=== PATIENT | male | born 1980 | race Two or more races ===

== ENCOUNTER 2017-01-30 12:52 | Inpatient (IN) | payer OTHER ==
[2017-01-30 14:16] VITALS: BMI 25.0
--- NOTE | 2017-01-30 15:07 | HP ---
CIWA Score - CIWA Score Nausea/Vomitin-No Nausea/No Vomiting Muscle Tremors: 4-Moderate,w/Arms Extend Anxiety: 3 Agitation: 4-Moderately Restless Paroxysmal Sweats: 3 Orientation: 0-Oriented Tacttile Disturbances: 0-None Auditory Disturbances: 0-None Visual Disturbances: 0-None Headache: 0-None Present CIWA-Ar Total Score: 14 Admission ROS BHS - HPI Chief Complaint: I need to cut down and stop using. Allergies/Adverse Reactions: Allergies Allergy/AdvReac Type Severity Reaction Status Date / Time penicillin G Allergy Severe Hives Verified 01/30/17 14:47 History of Present Illness: pt is a 36yr old male with a history of alcohol dependence seeking detox for treatment. This is his first time in our detox. Last detox at [facility] for detox a year ago. Exam Limitations: No Limitations - Ebola screening Have you traveled outside of the country in the last 21 days: No Have you had contact with anyone from an Ebola affected area: No Have you been sick,other than usual withdrawal symptoms: No Do you have a fever: No - Review of Systems Constitutional: Chills, Loss of Appetite, Night Sweats EENT: reports: No Symptoms Reported, Tearing Respiratory: reports: No Symptoms reported Cardiac: reports: No Symptoms Reported GI: reports: Diarrhea, Nausea, Poor Fluid Intake, Vomiting : reports: No Symptoms Reported Musculoskeletal: reports: No Symptoms Reported Integumentary: reports: Flushing, Sweating Neuro: reports: Seizure (alcohol related seizure 09/2016.), Tingling, Tremors Endocrine: reports: Excessive Sweating, Flushing, Intolerance to Cold, Intolerance to Heat Hematology: reports: No Symptoms Reported Psychiatric: reports: No Sypmtoms Reported, Judgement Intact, Mood/Affect Appropiate, Orientated x3, Agitated, Anxious Other Systems: Reviewed and Negative Patient History - Patient Medical History Hx Anemia: No Hx Asthma: No Hx Chronic Obstructive Pulmonary Disease (COPD): No Hx Cancer: No Hx Cardiac Disorders: No Hx Congestive Heart Failure: No Hx Hypertension: Yes (non compliant) Hx Hypercholesterolemia: No Hx Pacemaker: No HX Cerebrovascular Accident: No Hx Seizures: No Hx Dementia: No Hx Diabetes: No Hx Gastrointestinal Disorders: No Hx Liver Disease: No Hx Genitourinary Disorders: No Hx Sexually Transmitted Disorders: No Hx Renal Disease (ESRD): No Hx Thyroid Disease: No Hx Human Immunodeficiency Virus (HIV): No (negative) Hx Hepatitis C: No (negative) Hx Depression: No Hx Suicide Attempt: No (dennies) Hx Bipolar Disorder: No Hx Schizophrenia: No - Patient Surgical History Past Surgical History: No Hx Neurologic Surgery: No Hx Cataract Extraction: No Hx Cardiac Surgery: No Hx Lung Surgery: No Hx Breast Surgery: No Hx Breast Biopsy: No Hx Abdominal Surgery: No Hx Appendectomy: No Hx Cholecystectomy: No Hx Genitourinary Surgery: No Hx Section: No Hx Orthopedic Surgery: No Anesthesia Reaction: No - PPD History Previous Implant?: Yes Documented Results: Negative w/o proof Implanted On Prior R Admission?: No PPD to be Administered?: Yes - Reproductive History Patient is a Female of Child Bearing Age (11 -55 yrs old): No - Smoking Cessation Smoking history: Current every day smoker Have you smoked in the past 12 months: Yes Aproximately how many cigarettes per day: 10 Hx Chewing Tobacco Use: No Initiated information on smoking cessation: Yes 'Breaking Loose' booklet given: 01/30/17 - Substance & Tx. History Hx Alcohol Use: Yes Hx Substance Use: No Substance Use Type: Alcohol Hx Substance Use Treatment: Yes ([facility] 09/2015) - Substances Abused Alcohol-vodka Route: Oral Frequency: Daily Amount used: 3 pts. Age of first use: 15 Date of Last Use: 01/29/17 Family Disease History - Family Disease History Family Disease History: Other: Father (etoh), Mother (etoh) Admission Physical Exam BHS - Vital Signs Vital Signs: Vital Signs - 24 hr 01/30/17 14:11 Temperature 97.4 F L Pulse Rate 102 H Respiratory 20 Rate Blood Pressure 161/121 - Physical General Appearance: Yes: Appropriately Dressed, Moderate Distress, Tremorous, Irritable, Sweating, Anxious HEENTM: Yes: Normal Voice, Nasal Congestion, Rhinorrhea Respiratory: Yes: Lungs Clear, Normal Breath Sounds, No Respiratory Distress Neck: Yes: No masses,lesions,Nodules Breast: Yes: Within Normal Limits Cardiology: Yes: Regular Rhythm, Regular Rate, S1, S2 Abdominal: Yes: Normal Bowel Sounds, Non Tender, Soft Genitourinary: Yes: Within Normal Limits Back: Yes: Normal Inspection Musculoskeletal: Yes: full range of Motion Extremities: Yes: Normal Capillary Refill, Tremors Neurological: Yes: Fully Oriented, Alert, Normal Response Integumentary: Yes: Normal Color, Diaphoresis Lymphatic: Yes: Within Normal Limits - Diagnostic (1) Alcohol dependence with uncomplicated withdrawal Current Visit: Yes Status: Chronic (2) Nicotine dependence Current Visit: Yes Status: Chronic Qualifiers: Nicotine product type: cigarettes Substance use status: uncomplicated Qualified Code(s): F17.210 - Nicotine dependence, cigarettes, uncomplicated (3) Hypertension Current Visit: Yes Status: Chronic Qualifiers: Hypertension type: essential hypertension Qualified Code(s): I10 - Essential (primary) hypertension Cleared for Admission S - Detox or Rehab [facility] Level of Care: Medically Managed Detox Regimen/Protocol: Librium [facility] Breath Alcohol Content Breath Alcohol Content: 0 Urine Drug Screen - Results Drug Screen Negative: Yes
[2017-01-30] MEDS ORDERED: MAGNESIUM HYDROX 2400MG/30ML ORAL SUSPENSION 30 ML CUP PO PRN (15:10)
[2017-01-30] MEDS ORDERED: NICOTINE POLACRILEX 4 MG GUM BUC PRN (15:10)
[2017-01-30] MEDS ORDERED: guaiFENesin/D-METHORPHAN HB 10 ML UNIT-DOSE CUPS PO PRN (15:10)
[2017-01-30] MEDS ORDERED: MAGNESIUM CITRATE 300 ML BOTTLE PO PRN (15:10)
[2017-01-30] MEDS ORDERED: IBUPROFEN 400 MG TABLET (FP) PO PRN (15:10)
[2017-01-30] MEDS ORDERED: LOPERAMIDE HCL 2 MG CAPSULE PO PRN (15:10)
[2017-01-30] MEDS ORDERED: P-EPHED 60MG/TRIPROLIDI 2.5MG TABLET PO PRN (15:10)
[2017-01-30] MEDS ORDERED: MENTHOL/PHENOL 1 EACH UD MM PRN (15:10)
[2017-01-30] MEDS ORDERED: chlordiazePOXIDE HCL 25 MG CAPSULE PO PRN (15:10)
[2017-01-30] MEDS ORDERED: MAG HYDROX/AL HYDROX/SIMETH 30 ML UNIT-DOSE CUP PO PRN (15:10)
[2017-01-30] MEDS ORDERED: hydrOXYzine PAMOATE 50 MG CAPSULE (FP) PO PRN (15:10)
[2017-01-30] MEDS ORDERED: ACETAMINOPHEN 325 MG TABLET (FP) PO PRN (15:10)
[2017-01-30] MEDS ORDERED: chlordiazePOXIDE HCL 25 MG CAPSULE PO ONE (15:28)
[2017-01-30] MEDS ORDERED: LISINOPRIL 10 MG TABLET (FP) PO SCH (15:30)
[2017-01-30] MEDS: chlordiazePOXIDE HCL 25 MG CAPSULE PO SCH ×2 (17:05→22:12)
[2017-01-30 18:19] LABS: URINE APPEARANCE CLEAR; URINE BILIRUBIN NEGATIVE (NEGATIVE); URINE BLOOD NEGATIVE (NEGATIVE); URINE COLOR YELLOW; URINE GLUCOSE (UA) NEGATIVE (NEGATIVE); URINE KETONE 1+ (NEGATIVE); URINE LEUK ESTERASE NEGATIVE (NEGATIVE); URINE NITRITE NEGATIVE (NEGATIVE); URINE UROBILINOGEN NEGATIVE mg/dL (0.2-1.0)
[2017-01-30 18:27] LABS: URINE PROTEIN 3+ (NEGATIVE)
[2017-01-30 19:34] LABS: URINE MUCUS FEW; URINE RBC 4 /hpf (0-3); URINE WBC 1 /hpf (3-5)
[2017-01-30 19:38] LABS: URINE HYALINE CAST 3 /lpf
[2017-01-30] MEDS: THIAMINE HCL 100 MG TABLET (FP) PO SCH (22:12)
[2017-01-30] MEDS: diphenhydrAMINE HCL 50 MG CAPSULE PO PRN (22:13)
[2017-01-31] MEDS: chlordiazePOXIDE HCL 25 MG CAPSULE PO SCH ×4 (05:40→22:29)
[2017-01-31 09:54] LABS: MCH 30.9 pg (25.7-33.7); MCHC 33.8 g/dl (32.0-35.9); MEAN CELL VOLUME 91.6 fl (80-96); MEAN PLT VOLUME 9.3 fl (7.5-11.1); PLATELET COUNT 287 K/MM3 (134-434); RDW 13.9 % (11.9-15.9)
[2017-01-31] MEDS: PRENATAL VITAMINS W/ FOLIC ACID TABLET (FP) PO SCH (10:10)
[2017-01-31] MEDS: LISINOPRIL 10 MG TABLET (FP) PO SCH ×2 (10:11→22:29)
[2017-01-31] MEDS: NICOTINE 21 MG/24 HOURS TOPICAL PATCH TD SCH (10:11)
[2017-01-31 10:29] LABS: ALBUMIN 3.6 g/dl (3.4-5.0); ALK PHOS 87 U/L (45-117); ANION GAP 10 (8-16); BILIRUBIN,TOTAL 0.5 mg/dL (0.2-1.0); CALCIUM 9.5 mg/dL (8.5-10.1); CO2 27 mmol/L (21-32); CREATININE 0.9 mg/dL (0.7-1.3); GLUCOSE,RANDOM 127 mg/dL (74-106); SGOT/AST 42 U/L (15-37); SGPT/ALT 56 U/L (12-78); TOT PROT 8.3 g/dl (6.4-8.2)
[2017-01-31 10:50] LABS: HIV 1 & 2 AB NEGATIVE; HIV 1 AGp24 NEGATIVE
--- NOTE | 2017-01-31 10:52 | PN ---
[facility] CIWA - CIWA Score Nausea/Vomitin-No Nausea/No Vomiting Muscle Tremors: 4-Moderate,w/Arms Extend Anxiety: 4-Mod. Anxious/Guarded Agitation: 4-Moderately Restless Paroxysmal Sweats: 1-Minimal Palms Moist Orientation: 0-Oriented Tacttile Disturbances: 3-Moderate Itch/Numb/Burn Auditory Disturbances: 0-None Visual Disturbances: 0-None Headache: 0-None Present CIWA-Ar Total Score: 16 S Progress Note (SOAP) Subjective: ANXIETY,TREMORS,SWEATS, INTERMITTENT SLEEP. Objective: 01/31/17 10:52 Vital Signs Temperature 98.0 F 01/31/17 09:25 Pulse Rate 87 01/31/17 09:25 Respiratory Rate 18 01/31/17 09:25 Blood Pressure 144/104 01/31/17 09:25 O2 Sat by Pulse Oximetry (%) Laboratory Last Values WBC 8.0 K/mm3 (4.0-10.0) 01/31/17 06:30 RBC 4.98 M/mm3 (4.00-5.60) 01/31/17 06:30 Hgb 15.4 GM/dL (11.7-16.9) 01/31/17 06:30 Hct 45.6 % (35.4-49) 01/31/17 06:30 MCV 91.6 fl (80-96) 01/31/17 06:30 MCH 30.9 pg (25.7-33.7) 01/31/17 06:30 MCHC 33.8 g/dl (32.0-35.9) 01/31/17 06:30 RDW 13.9 % (11.9-15.9) 01/31/17 06:30 Plt Count 287 K/MM3 (134-434) 01/31/17 06:30 MPV 9.3 fl (7.5-11.1) 01/31/17 06:30 Sodium 135 mmol/L (136-145) L 01/31/17 06:30 Potassium 3.7 mmol/L (3.5-5.1) 01/31/17 06:30 Chloride 98 mmol/L (98-107) 01/31/17 06:30 Carbon Dioxide 27 mmol/L (21-32) 01/31/17 06:30 Anion Gap 10 (8-16) 01/31/17 06:30 BUN 8 mg/dL (7-18) 01/31/17 06:30 Creatinine 0.9 mg/dL (0.7-1.3) 01/31/17 06:30 Creat Clearance w eGFR > 60 (>60) 01/31/17 06:30 Random Glucose 127 mg/dL (74-106) H 01/31/17 06:30 Calcium 9.5 mg/dL (8.5-10.1) 01/31/17 06:30 Total Bilirubin 0.5 mg/dL (0.2-1.0) 01/31/17 06:30 AST 42 U/L (15-37) H 01/31/17 06:30 ALT 56 U/L (12-78) 01/31/17 06:30 Alkaline Phosphatase 87 U/L (45-117) 01/31/17 06:30 Total Protein 8.3 g/dl (6.4-8.2) H 01/31/17 06:30 Albumin 3.6 g/dl (3.4-5.0) 01/31/17 06:30 Urine Color Yellow 01/30/17 17:06 Urine Appearance Clear 01/30/17 17:06 Urine pH 8.0 (5.0-8.0) 01/30/17 17:06 Ur Specific [place] 1.025 (1.005-1.025) 01/30/17 17:06 Urine Protein 3+ (NEGATIVE) H 01/30/17 17:06 Urine Glucose (UA) Negative (NEGATIVE) 01/30/17 17:06 Urine Ketones 1+ (NEGATIVE) H 01/30/17 17:06 Urine Blood Negative (NEGATIVE) 01/30/17 17:06 Urine Nitrite Negative (NEGATIVE) 01/30/17 17:06 Urine Bilirubin Negative (NEGATIVE) 01/30/17 17:06 Urine Urobilinogen Negative mg/dL (0.2-1.0) 01/30/17 17:06 Ur Leukocyte Esterase Negative (NEGATIVE) 01/30/17 17:06 Urine RBC 4 /hpf (0-3) 01/30/17 17:06 Urine WBC 1 /hpf (3-5) 01/30/17 17:06 Ur Epithelial Cells Rare /hpf (FEW) 01/30/17 17:06 Hyaline Casts 3 /lpf 01/30/17 17:06 Urine Mucus Few 01/30/17 17:06 HIV 1&2 Antibody Screen Negative 01/31/17 09:00 HIV P24 Antigen Negative 01/31/17 09:00 Assessment: 01/31/17 10:54 WITHDRAWAL SX Plan: CONTINUE DETOX
[2017-01-31] MEDS ORDERED: chlordiazePOXIDE HCL 25 MG CAPSULE PO ONE (14:30)
--- NOTE | 2017-01-31 14:50 | EKG ---
Test Reason : Blood Pressure : / mmHG Vent. Rate : 084 BPM Atrial Rate : 084 BPM P-R Int : 156 ms QRS Dur : 078 ms QT Int : 400 ms P-R-T Axes : 047 032 044 degrees QTc Int : 472 ms SINUS RHYTHM WITH MARKED SINUS ARRHYTHMIA OTHERWISE NORMAL ECG NO PREVIOUS ECGS AVAILABLE Confirmed by CHASTITY GOODRICH MD ([id number]) on 01/31/2017 2:50:43 PM Referred By: Confirmed By:CHASTITY GOODRICH MD
[2017-01-31] MEDS: THIAMINE HCL 100 MG TABLET (FP) PO SCH (22:28)
[2017-01-31] MEDS: diphenhydrAMINE HCL 50 MG CAPSULE PO PRN (22:29)
[2017-02-01] MEDS: chlordiazePOXIDE HCL 25 MG CAPSULE PO SCH ×2 (05:45→10:16)
[2017-02-01] MEDS: LISINOPRIL 10 MG TABLET (FP) PO SCH ×2 (10:16→21:18)
[2017-02-01] MEDS: NICOTINE 21 MG/24 HOURS TOPICAL PATCH TD SCH (10:16)
[2017-02-01] MEDS: PRENATAL VITAMINS W/ FOLIC ACID TABLET (FP) PO SCH (10:16)
--- NOTE | 2017-02-01 10:23 | PN ---
[facility] CIWA - CIWA Score Nausea/Vomitin-No Nausea/No Vomiting Muscle Tremors: 4-Moderate,w/Arms Extend Anxiety: 4-Mod. Anxious/Guarded Agitation: 4-Moderately Restless Paroxysmal Sweats: 1-Minimal Palms Moist Orientation: 0-Oriented Tacttile Disturbances: 3-Moderate Itch/Numb/Burn Auditory Disturbances: 0-None Visual Disturbances: 0-None Headache: 0-None Present CIWA-Ar Total Score: 16 BHS Progress Note (SOAP) Subjective: ANXIETY,SWEATS,SLIGHT TREMORS. Objective: 02/01/17 10:22 Vital Signs Temperature 97.7 F 02/01/17 09:22 Pulse Rate 88 02/01/17 09:22 Respiratory Rate 18 02/01/17 09:22 Blood Pressure 131/86 02/01/17 09:22 O2 Sat by Pulse Oximetry (%) Laboratory Last Values WBC 8.0 K/mm3 (4.0-10.0) 01/31/17 06:30 RBC 4.98 M/mm3 (4.00-5.60) 01/31/17 06:30 Hgb 15.4 GM/dL (11.7-16.9) 01/31/17 06:30 Hct 45.6 % (35.4-49) 01/31/17 06:30 MCV 91.6 fl (80-96) 01/31/17 06:30 MCH 30.9 pg (25.7-33.7) 01/31/17 06:30 MCHC 33.8 g/dl (32.0-35.9) 01/31/17 06:30 RDW 13.9 % (11.9-15.9) 01/31/17 06:30 Plt Count 287 K/MM3 (134-434) 01/31/17 06:30 MPV 9.3 fl (7.5-11.1) 01/31/17 06:30 Sodium 135 mmol/L (136-145) L 01/31/17 06:30 Potassium 3.7 mmol/L (3.5-5.1) 01/31/17 06:30 Chloride 98 mmol/L (98-107) 01/31/17 06:30 Carbon Dioxide 27 mmol/L (21-32) 01/31/17 06:30 Anion Gap 10 (8-16) 01/31/17 06:30 BUN 8 mg/dL (7-18) 01/31/17 06:30 Creatinine 0.9 mg/dL (0.7-1.3) 01/31/17 06:30 Creat Clearance w eGFR > 60 (>60) 01/31/17 06:30 Random Glucose 127 mg/dL (74-106) H 01/31/17 06:30 Calcium 9.5 mg/dL (8.5-10.1) 01/31/17 06:30 Total Bilirubin 0.5 mg/dL (0.2-1.0) 01/31/17 06:30 AST 42 U/L (15-37) H 01/31/17 06:30 ALT 56 U/L (12-78) 01/31/17 06:30 Alkaline Phosphatase 87 U/L (45-117) 01/31/17 06:30 Total Protein 8.3 g/dl (6.4-8.2) H 01/31/17 06:30 Albumin 3.6 g/dl (3.4-5.0) 01/31/17 06:30 Urine Color Yellow 01/30/17 17:06 Urine Appearance Clear 01/30/17 17:06 Urine pH 8.0 (5.0-8.0) 01/30/17 17:06 Ur Specific [place] 1.025 (1.005-1.025) 01/30/17 17:06 Urine Protein 3+ (NEGATIVE) H 01/30/17 17:06 Urine Glucose (UA) Negative (NEGATIVE) 01/30/17 17:06 Urine Ketones 1+ (NEGATIVE) H 01/30/17 17:06 Urine Blood Negative (NEGATIVE) 01/30/17 17:06 Urine Nitrite Negative (NEGATIVE) 01/30/17 17:06 Urine Bilirubin Negative (NEGATIVE) 01/30/17 17:06 Urine Urobilinogen Negative mg/dL (0.2-1.0) 01/30/17 17:06 Ur Leukocyte Esterase Negative (NEGATIVE) 01/30/17 17:06 Urine RBC 4 /hpf (0-3) 01/30/17 17:06 Urine WBC 1 /hpf (3-5) 01/30/17 17:06 Ur Epithelial Cells Rare /hpf (FEW) 01/30/17 17:06 Hyaline Casts 3 /lpf 01/30/17 17:06 Urine Mucus Few 01/30/17 17:06 RPR Titer Nonreactive (NONREACTIVE) 01/31/17 06:30 HIV 1&2 Antibody Screen Negative 01/31/17 09:00 HIV P24 Antigen Negative 01/31/17 09:00 Assessment: 02/01/17 10:23 WITHDRAWAL SX Plan: CONTINUE DETOX
[2017-02-01] MEDS ORDERED: chlordiazePOXIDE HCL 25 MG CAPSULE PO ONE (14:30)
[2017-02-01] MEDS: chlordiazePOXIDE 5 MG CAPSULE PO SCH ×2 (17:20→22:07)
[2017-02-01] MEDS: THIAMINE HCL 100 MG TABLET (FP) PO SCH (22:07)
[2017-02-01] MEDS: diphenhydrAMINE HCL 50 MG CAPSULE PO PRN (22:07)
[2017-02-02] MEDS: chlordiazePOXIDE 5 MG CAPSULE PO SCH (05:43)
--- NOTE | 2017-02-02 10:09 | DS ---
[facility] Detox Discharge Summary Admission Date: 01/30/17 Discharge Date: 02/02/17 - History Present History: Alcohol Dependence Additional Comments: DETOX COMPLETED. ALERT O X 3. NAD.PT INSTRUCTED TO FOLLOW UP AT [facility]. Pertinent Past History: HTN - Physical Exam Results Vital Signs: Vital Signs Temperature 97.4 F L 02/02/17 06:09 Pulse Rate 93 H 02/02/17 06:09 Respiratory Rate 18 02/02/17 06:09 Blood Pressure 149/104 02/02/17 06:09 O2 Sat by Pulse Oximetry (%) Pertinent Admission Physical Exam Findings: WITHDRAWAL SX Laboratory Last Values WBC 8.0 K/mm3 (4.0-10.0) 01/31/17 06:30 RBC 4.98 M/mm3 (4.00-5.60) 01/31/17 06:30 Hgb 15.4 GM/dL (11.7-16.9) 01/31/17 06:30 Hct 45.6 % (35.4-49) 01/31/17 06:30 MCV 91.6 fl (80-96) 01/31/17 06:30 MCH 30.9 pg (25.7-33.7) 01/31/17 06:30 MCHC 33.8 g/dl (32.0-35.9) 01/31/17 06:30 RDW 13.9 % (11.9-15.9) 01/31/17 06:30 Plt Count 287 K/MM3 (134-434) 01/31/17 06:30 MPV 9.3 fl (7.5-11.1) 01/31/17 06:30 Sodium 135 mmol/L (136-145) L 01/31/17 06:30 Potassium 3.7 mmol/L (3.5-5.1) 01/31/17 06:30 Chloride 98 mmol/L (98-107) 01/31/17 06:30 Carbon Dioxide 27 mmol/L (21-32) 01/31/17 06:30 Anion Gap 10 (8-16) 01/31/17 06:30 BUN 8 mg/dL (7-18) 01/31/17 06:30 Creatinine 0.9 mg/dL (0.7-1.3) 01/31/17 06:30 Creat Clearance w eGFR > 60 (>60) 01/31/17 06:30 Random Glucose 127 mg/dL (74-106) H 01/31/17 06:30 Calcium 9.5 mg/dL (8.5-10.1) 01/31/17 06:30 Total Bilirubin 0.5 mg/dL (0.2-1.0) 01/31/17 06:30 AST 42 U/L (15-37) H 01/31/17 06:30 ALT 56 U/L (12-78) 01/31/17 06:30 Alkaline Phosphatase 87 U/L (45-117) 01/31/17 06:30 Total Protein 8.3 g/dl (6.4-8.2) H 01/31/17 06:30 Albumin 3.6 g/dl (3.4-5.0) 01/31/17 06:30 Urine Color Yellow 01/30/17 17:06 Urine Appearance Clear 01/30/17 17:06 Urine pH 8.0 (5.0-8.0) 01/30/17 17:06 Ur Specific [place] 1.025 (1.005-1.025) 01/30/17 17:06 Urine Protein 3+ (NEGATIVE) H 01/30/17 17:06 Urine Glucose (UA) Negative (NEGATIVE) 01/30/17 17:06 Urine Ketones 1+ (NEGATIVE) H 01/30/17 17:06 Urine Blood Negative (NEGATIVE) 01/30/17 17:06 Urine Nitrite Negative (NEGATIVE) 01/30/17 17:06 Urine Bilirubin Negative (NEGATIVE) 01/30/17 17:06 Urine Urobilinogen Negative mg/dL (0.2-1.0) 01/30/17 17:06 Ur Leukocyte Esterase Negative (NEGATIVE) 01/30/17 17:06 Urine RBC 4 /hpf (0-3) 01/30/17 17:06 Urine WBC 1 /hpf (3-5) 01/30/17 17:06 Ur Epithelial Cells Rare /hpf (FEW) 01/30/17 17:06 Hyaline Casts 3 /lpf 01/30/17 17:06 Urine Mucus Few 01/30/17 17:06 RPR Titer Nonreactive (NONREACTIVE) 01/31/17 06:30 HIV 1&2 Antibody Screen Negative 01/31/17 09:00 HIV P24 Antigen Negative 01/31/17 09:00 - Treatment Hospital Course: Detox Protocol Followed, Detoxed Safely, Responded well, Discharged Condition Good - Medication Discharge Medications: Ambulatory Orders Lisinopril [Prinivil] 10 mg PO DAILY 01/30/17 - Diagnosis (1) Alcohol dependence with uncomplicated withdrawal Status: Chronic (2) Hypertension Status: Chronic Qualifiers: Hypertension type: essential hypertension Qualified Code(s): I10 - Essential (primary) hypertension (3) Nicotine dependence Status: Acute Qualifiers: Nicotine product type: cigarettes Substance use status: in withdrawal Qualified Code(s): F17.213 - Nicotine dependence, cigarettes, with withdrawal - AMA Did Patient Leave Against Medical Advice: No
[2017-02-02 10:32] VITALS: BP 134/95; PULSE 89; TEMP 98.3
[2017-02-02] MEDS ORDERED: chlordiazePOXIDE HCL 10 MG CAPSULE PO SCH ×2 (11:00→17:00)
== END 2017-02-02 09:40 | disposition home or self-care (01) | DRG 775 ==
LOC: YASAS 12:52 → Y3N 15:09
PROVIDERS: ADMIT Internal Medicine; ATTEND Internal Medicine
PROC: HZ2ZZZZ Detoxification Services for Substance Abuse Treatment (ICD-10-PCS; principal; 2017-01-30)
DX: F10.230 Alcohol dependence with withdrawal, uncomplicated (principal); F17.213 Nicotine dependence, cigarettes, with withdrawal; I10 Essential (primary) hypertension; Z88.0 Allergy status to penicillin; Z91.14 Patient's other noncompliance with medication regimen
CPT/HCPCS: 36415; 80053; 81003; 81015; 85027; 86593; 87389; 93005; 93010